=== PATIENT | female | born 1965 | race Caucasian/White ===

== ENCOUNTER 2017-05-31 13:05 | Emergency (ER) | payer OTHER ==
[~2017-05-31] VITALS: Ht 162.6 cm; Wt 79.5 kg
[2017-05-31 13:21] VITALS: BP 153/97
--- NOTE | 2017-05-31 14:06 | NUR ---
PT AMBULATED TO BED 7.
--- NOTE | 2017-05-31 14:08 | NUR ---
52F BIB SELF C/O INTERMITTENT PALPITATIONS X 9 DAYS; PT STATES " IT GETS FAST, FLUTTERS, THEN GOES BACK TO NORMAL"; PT STATES WAS STARTED ON HCTZ, ASA, AND METFORMIN BY PMD AND STATES PALPITATIONS MAY HAVE BEEN CAUSED BY MEDICATIONS; PT C/O RT CHEST TIGHTNESS, NON-RADIATING, 2/10 X 9 DAYS; PT STATES NO TRAUMA OR INJURY TO SITE AT THIS TIME; PT AA&OX4, PERRLA, BL LUNG SOUNDS CLEAR, RR EVEN/UNLABORED, SKIN IS WARM/DRY/INTACT AT THIS TIME; PT STATES NO N/V/D AT THIS TIME; STEADY GAIT; PT RESTING IN BED WITH HOB ELEVATED AND IN LOWEST POSITION; POSITIONED FOR COMFORT; ER MD MADE AWARE OF STATUS. WILL CONTINUE TO MONITOR.
--- NOTE | 2017-05-31 14:10 | NUR ---
ER MD DR. TALAVERA EVALUATING PT AT BEDSIDE.
[2017-05-31] MEDS ORDERED: NACL 0.9% 1,000 ML IV ONE (14:25)
[2017-05-31] MEDS ORDERED: LORazepam 2 MG/ML VIAL IVP ONE (14:25)
--- NOTE | 2017-05-31 14:36 | NUR ---
XRAY AT BEDSIDE.
[2017-05-31 15:00] LABS: BASOPHILS # (AUTO) 0.2 K/uL (0.00-0.22); BASOPHILS % (AUTO) 1.9 % (0.0-2.0); EOSINOPHILS # (AUTO) 0.1 K/uL (0-0.4); HEMATOCRIT 44.1 % (36-48); HEMOGLOBIN 15.1 g/dL (12.0-16.0); LYMPHOCYTES # (AUTO) 2.5 K/uL (2.5-16.5); LYMPHOCYTES % (AUTO) 25.7 % (20.5-51.1); MEAN CORPUSCULAR HEMOGLOBIN 31 pg (27-31); MEAN CORPUSCULAR HGB CONC 34 g/dL (33-37); MEAN CORPUSCULAR VOLUME 91 fL (80-94); MONOCYTES # (AUTO) 0.6 K/uL (0.8-1.0); MONOCYTES % (AUTO) 6.5 % (1.7-9.3); NEUTROPHILS # (AUTO) 6.3 K/uL (1.8-7.7); NEUTROPHILS % (AUTO) 64.9 % (42.2-75.2); PLATELET COUNT (AUTO) 221 K/uL (140-450); RED BLOOD CELL COUNT(AUTO) 4.86 MIL/uL (4.20-5.40); RED CELL DISTRIBUTION WIDTH 12.5 % (11.6-13.7); WHITE BLOOD COUNT (AUTO) 9.7 K/uL (4.8-10.8)
[2017-05-31 15:21] LABS: ANION GAP 13.9 (8-16); CREATININE 0.7 mg/dL (0.6-1.3); POTASSIUM 3.9 mmol/L (3.5-5.1); TOTAL BILIRUBIN 0.4 mg/dL (0.0-1.0)
[2017-05-31 15:26] LABS: PROTHROMBIN TIME 10.2 secs (10.8-13.4)
--- NOTE | 2017-05-31 16:00 | NUR ---
PT APPEARS TO BE RESTING COMFORTABLY IN BED; RR EVEN/UNLABORED; POSITIONED FOR COMFORT; WILL CONTINUE TO MONITOR.
--- NOTE | 2017-05-31 17:10 | NUR ---
IV removed, catheter intact and site benign. Applied folded 4x4 gauze and tape to stop bleeding. PT TOLERATED PROCEDURE WELL.
[2017-05-31 17:12] VITALS: BP 144/79
--- NOTE | 2017-05-31 17:12 | NUR ---
Patient discharged with v/s stable. Written and verbal after care instructions given and explained. Patient alert, oriented and verbalized understanding of instructions. Ambulatory with steady gait. All questions addressed prior to discharge. ID band removed. Patient advised to follow up with PMD. Rx of ATIVAN 0.5MG TAB given. Patient educated on indication of medication including possible reaction and side effects. Opportunity to ask questions provided and answered.
== END 2017-05-31 17:12 | disposition home or self-care (01) ==
LOC: MED 13:05 → EDBD 13:05 → MED 17:12
DX: R00.2 Palpitations (principal); E11.9 Type 2 diabetes mellitus without complications; I10 Essential (primary) hypertension; Z90.89 Acquired absence of other organs
CPT/HCPCS: 36415; 71010; 80053; 84484; 85025; 85610; 85730; 93005; 96361; 96374; 99285; J2060; J7030; Q0092